=== PATIENT | female | born 1950 | race Caucasian/White ===

== ENCOUNTER 2021-03-13 17:11 | Emergency (ER) | payer MEDICARE, SELFPAY ==
[2021-03-13 17:17] VITALS: BP 151/93; PULSE 67; RESP 16; TEMP 36.8; O2SAT 99
--- NOTE | 2021-03-13 17:34 | ED.FEMALEGU ---
HPI - Female Genitourinary General Chief complaint: Urogenital-Female Stated complaint: UTI SYMPTOMS Time Seen by Provider: 03/13/21 17:34 Source: patient Mode of arrival: ambulatory Limitations: no limitations History of Present Illness HPI Narrative: Vicki garcia is a 70-year-old female with a PMH of hypertension, high cholesterol, CKD stage III ,who comes to [facility] with complaints of urinary tract symptoms that started a week ago she states she is got burning and frequency she has been trying to push water and they got little bit better but now is gotten much worse and she feels poorly Related Data Allergies Allergy/AdvReac Type Severity Reaction Status Date / Time naproxen Allergy Mild HIVES - PT Verified 03/13/21 17:24 STATES ONLY REACTS TO ALEVE, NOT OTHER NSAIDS Review of Systems Review of Systems: CONSTITUTIONAL: Denies fever, chills, sweats. Feeling poorly EYES: Denies visual changes, redness, discharge. ENT: Denies rhinorrhea, congestion, sore throat, otalgia. CARDIOVASCULAR: Denies chest pain, palpitations, edema. RESPIRATORY: Denies dyspnea, wheezing, cough GASTROINTESTINAL: Denies abdominal pain, nausea, vomiting, diarrhea. GENITOURINARY: Has dysuria,has hematuria, no abnormal discharge SKIN: Denies rash or itching. NEUROLOGIC: Denies numbness, or focal weakness. PSYCHIATRIC: Denies anxiety or depression. [facility]LY [facility], [facility] Past Medical History Medical History Chronic renal failure, stage 3 (moderate) Essential (primary) hypertension High cholesterol Surgical History Surgical History History of hip replacement Family History Family History Sibling Carcinoma of colon, Onset Age: 61 Patient's brother is Grandparent Carcinoma of colon, Onset Age: 91 Mother Family history of malignant neoplasm of breast in first degree relative Social History Social History Smoking status: Never smoker Second hand tobacco smoke exposure: No Alcohol intake: current Comments At time of signature, I agree with nursing past medical, surgical, social and family history. There is no relevant family history pertinent to the presenting complaint. Exam Narrative: GENERAL: This is a well-nourished, well-developed patient, in mild distress. HEAD: normocephalic, atraumatic. EYES: PERRL. Sclera clear/white. Vision is grossly intact. EARS: External ears normal, Hearing grossly intact. NOSE: External nose normal without nasal discharge, nares without redness, no rhinorrhea. THROAT: Mucous membranes moist, NECK: Neck supple, non-tender CARDIOVASCULAR: Regular rate and rhythm without murmurs, gallops, or rubs. RESPIRATORY: Clear to auscultation. Breath sounds equal bilaterally. No wheezes, rales, or rhonchi. GASTROINTESTINAL: Abdomen soft, SKIN: warm, intact with no suspicious lesions or rash, good texture and turgor. NEURO: awake, alert, and oriented to person, place and time. There were no obvious focal neurologic abnormalities. Steady gait EXTREMITIES: Normal range of motion. BACK: Nontender without deformity Course Course Emergency Course: Patient comes with urinary tract symptoms x1 week that got little bit better with push of drinking a lot of water but is returned and she is feeling poorly now Urine shows positive leukocytes +1, blood is +3, she is slightly dehydrated Started on Keflex 500 mg 1 twice daily x5 days and Diflucan to take after complete antibiotics Vital Signs Vital signs: Vital Signs Temperature 98.2 F 03/13/21 17:17 Pulse Rate 67 03/13/21 17:17 Respiratory Rate 16 03/13/21 17:17 Blood Pressure 151/93 H 03/13/21 17:17 Pulse Oximetry 99 03/13/21 17:17 Temperature 98.2 F 03/13/21 17:17 Pulse Rat
== END 2021-03-13 17:45 | disposition home or self-care (01) ==
PROVIDERS: Emergency Provider Nurse Practitioner; PCP Internal Medicine
DX: N30.01 Acute cystitis with hematuria (principal); I12.9 Hypertensive chronic kidney disease with stage 1 through stage 4 chronic kidney disease, or unspecified chronic kidney disease; N18.30 Chronic kidney disease, stage 3 unspecified
CPT/HCPCS: 81003; 87077; 87086; 87186; 99213; G0463

== ENCOUNTER 2021-08-07 09:40 | Outpatient (CLI) | payer MEDICARE, SELFPAY ==
--- NOTE | ~2021-08-07 | NM_ITS ---
EXAMINATION: NM stress w perf spect multi DATE: 08/07/2021 13:06 INDICATION: Dyspnea on exertion. TECHNIQUE: Rest images were obtained following intravenous administration of 9 mCi Tc99m tetrofosmin (Myoview). The patient performed an exercise activity. At peak exercise, 27.5 mCi Tc99m tetrofosmin ( Myoview) was administered intravenously, and stress images were obtained. Data was reconstructed into short axis and horizontal and vertical long axis SPECT images. Gated SPECT images were also obtained . COMPARISON: None. FINDINGS: There is no definite reversible or fixed perfusion abnormality to suggest ischemia or infar ction. There is no segmental wall motion abnormality. Left ventricular ejection fraction measures > 70%. IMPRESSION: 1. No definite ischemia or infarct. 2. Normal left ventricular ejection fraction measuring >70%. Reviewed, dictated and finalized at location B.
--- NOTE | 2021-08-07 10:29 | EST_ITS ---
Patient Info Name: Vicki Salgado Age: 71 years : 1950 Gender: Female Ht: 64 in Wt: 200 lbs BSA: 2.06 m2 HR: 57 bpm BP: 185 / 106 mmHg Heart Rhythm: Sinus Rhythm Exam Date: 08/07/2021 11:17 AM Exam Location: [facility] Stress Patient Status: Outpatient Admit Date: 08/07/2021 Staff Ordering Physician: Davidson Kay DO Attending Provider: Davidson Kay DO Exercise Technologist: Valorie Mendiola CT Exercise Physician: Petros Sr DO Exam Type: CA stress test treadmill w NM Study Info Indications R06.00 - Dyspnea, unspecified A nuclear stress test was performed. Summary 1. 1. Negative Adalid exercise stress test for ischemic ST changes by ECG criteria. 2. 2. Reduced functional capacity, achieving 7 METs of workload. 3. 3. Baseline hypertension. 4. 4. Appropriate HR response to exercise. 5. 5. Appropriate HR recovery at 1 minute post exercise. 6. 6. Nuclear scan to follow and will be reported separately. Please correlate with it. 7. 7. Patient informed of the above results. Protocol: Adalid Stress ECG Details Stage: REST Duration (min): 5 min : 12 sec Speed (mph): 0.0 Grade (%): 0 HR (bpm): 63 SBP (mmHg): 185 DBP (mmHg): 106 METS: --- Stage: REST Duration (min): 10 min : 33 sec Speed (mph): 0.0 Grade (%): 0 HR (bpm): 63 SBP (mmHg): 177 DBP (mmHg): 102 METS: --- Stage: STAGE 1 Duration (min): 1 min : 0 sec Speed (mph): 1.7 Grade (%): 10 HR (bpm): 93 SBP (mmHg): 177 DBP (mmHg): 102 METS: --- Stage: STAGE 1 Duration (min): 2 min : 0 sec Speed (mph): 1.7 Grade (%): 10 HR (bpm): 107 SBP (mmHg): 177 DBP (mmHg): 102 METS: --- Stage: STAGE 1 Duration (min): 3 min : 0 sec Speed (mph): 1.7 Grade (%): 10 HR (bpm): 115 SBP (mmHg): 181 DBP (mmHg): 99 METS: --- Stage: STAGE 2 Duration (min): 1 min : 0 sec Speed (mph): 2.5 Grade (%): 12 HR (bpm): 126 SBP (mmHg): 181 DBP (mmHg): 99 METS: --- Stage: STAGE 2 Duration (min): 2 min : 0 sec Speed (mph): 2.5 Grade (%): 12 HR (bpm): 126 SBP (mmHg): 181 DBP (mmHg): 99 METS: --- Stage: RECOVERY Duration (min): 1 min : 0 sec Speed (mph): 0.0 Grade (%): 0 HR (bpm): 119 SBP (mmHg): 137 DBP (mmHg): 88 METS: --- Stage: RECOVERY Duration (min): 2 min : 0 sec Speed (mph): 0.0 Grade (%): 0 HR (bpm): 94 SBP (mmHg): 137 DBP (mmHg): 88 METS: --- Stage: RECOVERY Duration (min): 3 min : 0 sec Speed (mph): 0.0 Grade (%): 0 HR (bpm): 81 SBP (mmHg): 137 DBP (mmHg): 88 METS: --- Stage: RECOVERY Duration (min): 3 min : 23 sec Speed (mph): 0.0 Grade (%): 0 HR (bpm): 80 SBP (mmHg): 186 DBP (mmHg): 94 METS: --- Rest HR: 63 bpm Peak HR: 145 bpm Rest Sys BP: 177 mmHg Peak Sys BP: 186 mmHg Max Pred HR: 151 bpm % Max Pred HR: 96 % Tar
== END 2021-08-07 09:41 | disposition home or self-care (01) ==
PROVIDERS: PCP Internal Medicine; Visit Provider Internal Medicine
DX: R06.00 Dyspnea, unspecified (principal); R07.89 Other chest pain
CPT/HCPCS: 78452; 93017; A9502

== ENCOUNTER 2022-10-03 03:10 | Day surgery (SDC) | payer MEDICARE, SELFPAY ==
[2022-09-24 13:06] VITALS: BMI 34.4
--- NOTE | 2022-10-03 07:53 | P.PNAN_ITS ---
Anes - Initial Pre Proc Eval Procedure: Operation Date: 10/03/22 11:00 Proposed Procedures p Screening Colonoscopy - Jarek Patrick MD Date/Time: 10/03/22 07:53 Surgeon: Jarek Patrick MD Pre Op Diagnosis: neoplasm screening Patient Data Age: 72 Gender: F Height: 1.63 m Weight: 91 kg Allergies Allergy/AdvReac Type Severity Reaction Status Date / Time naproxen Allergy Mild HIVES - PT Verified 09/24/22 13:05 STATES ONLY REACTS TO ALEVE, NOT OTHER NSAIDS Home Medications Medication Instructions Recorded Confirmed Type losartan 100 mg tablet 100 mg PO DAILY #90 tabs 07/21/22 09/24/22 Rx meloxicam 15 mg tablet 15 mg PO DAILY #90 tabs 07/21/22 09/24/22 Rx carvedilol 6.25 mg tablet 6.25 mg PO Q12H #180 tabs 08/27/22 09/24/22 Rx Patient hx anesthesia problems: none Family hx anesthesia problems: none Results Review: All pre-operative results and documents have been reviewed as part of the pre- operative evaluation. FORMERLY [facility], LATER [facility] Past Medical History Medical History Chronic renal failure, stage 3 (moderate) Essential (primary) hypertension High cholesterol Surgical History Surgical History History of hip replacement Family History Family History Sibling Carcinoma of colon, Onset Age: 61 Patient's brother is Grandparent Carcinoma of colon, Onset Age: 91 Mother Family history of malignant neoplasm of breast in first degree relative Social History Social History (Updated 08/20/22 @ 11:15 by Tiffanie Cheek MA) Smoking status: Never smoker Second hand tobacco smoke exposure: No Alcohol intake: current Drinks per week: 3 Lack of Transportation: No Lack of Food: Never True Current Housing: I Have Housing Concerned About Future Housing: No Difficulty Paying Gas/Electric Bills: No Difficulty Paying for Meds: No Currently Unemployed: No Education: Associate Degree Difficulty w/ Childcare or Family Care: No Gender identity (if verbalized by the patient): Female Spiritual care concerns: No Anes - Eval Final PreProcedure Day of Procedure 10/03/22 07:53 Patient weight: obese Heart: regular rate and rhythm Lungs: clear to auscultation and normal air movement Airway: Mallampati scale class II Neurological: alert and oriented Last oral intake: >/= 8 hours ASA classification: III Emergent: no Anesthetic plan: proceed Anesthesia type and monitoring: general GIVS Results Review: All pre-operative results and documents have been reviewed as part of the pre- operative evaluation. Informed Consent: The patient's anesthetic plan and its attendant risks and benefits were discussed with the patient/family/POA. Questions were solicited and answers provided to the satisfaction of the patient/family/POA.
[2022-10-03 10:32] VITALS: BP 175/104; PULSE 56; RESP 18; TEMP 36.3; O2SAT 100; BMI 34.3
[2022-10-03] MEDS: LACTATED RINGERS 1,000 ML 150 ML IV CONT (10:53)
[2022-10-03 10:56] VITALS: BP 152/78
--- NOTE | 2022-10-03 11:19 | PM.HPGS ---
History of Present Illness History of Present Illness Consent: Risks, benefits, and alternatives have been discussed and questions answered. Patient agrees to proceed with procedure. Chief complaint: neoplasm screening Narrative: Vicki Salgado is a 72 year old female Presents for screening colonoscopy. Patient's current weight appetite and bowel movements are normal. Patient denies abdominal pain. She has had no bleeding. Family history is significant that her brother had colon cancer. Patient's previous colonoscopy 2018 was unremarkable. Review of Systems Review of Systems: Review of systems noncontributory. [facility] Past Medical History Medical History Chronic renal failure, stage 3 (moderate) Essential (primary) hypertension High cholesterol Surgical History Surgical History History of hip replacement Family History Family History Sibling Carcinoma of colon, Onset Age: 61 Patient's brother is Grandparent Carcinoma of colon, Onset Age: 91 Mother Family history of malignant neoplasm of breast in first degree relative Social History Social History (Updated 08/20/22 @ 11:15 by Tiffanie Cheek MA) Smoking status: Never smoker Second hand tobacco smoke exposure: No Alcohol intake: current Drinks per week: 3 Lack of Transportation: No Lack of Food: Never True Current Housing: I Have Housing Concerned About Future Housing: No Difficulty Paying Gas/Electric Bills: No Difficulty Paying for Meds: No Currently Unemployed: No Education: Associate Degree Difficulty w/ Childcare or Family Care: No Gender identity (if verbalized by the patient): Female Spiritual care concerns: No Meds Home Medications and Allergies Home Medications Medication Instructions Recorded Confirmed Type losartan 100 mg tablet 100 mg PO DAILY #90 tabs 07/21/22 09/24/22 Rx meloxicam 15 mg tablet 15 mg PO DAILY #90 tabs 07/21/22 09/24/22 Rx carvedilol 6.25 mg tablet 6.25 mg PO Q12H #180 tabs 08/27/22 09/24/22 Rx Allergies Allergy/AdvReac Type Severity Reaction Status Date / Time naproxen Allergy Mild HIVES - PT Verified 09/24/22 13:05 STATES ONLY REACTS TO ALEVE, NOT OTHER NSAIDS Vital Signs Vital Signs - 24 hr 10/03/22 10:32 10/03/22 10:56 Temperature 97.4 F L Pulse Rate 56 L Respiratory Rate 18 Blood Pressure 175/104 H 152/78 H Pulse Oximetry 100 Oxygen Delivery Room Air Exam Narrative: Physical exam reveals patient to be alert. Vital signs stable. HEENT exam is unremarkable. Patient is anicteric. Lungs are clear to auscultation and percussion. Heart is without murmur or extra sounds. Abdomen bowel sounds are present soft nontender with no organomegaly. Digital external rectal exam is normal. Assessment and Plan Assessment and plan (1) Family hx of colon cancer: Code(s): Z80.0 - Family history of malignant neoplasm of digestive organs Status: Acute Assessment and Plan: Patient's brother had colon cancer. For this reason surveillance colonoscopy is advised.
[2022-10-03 11:50] VITALS: BP 127/73; PULSE 65; RESP 24; O2SAT 99
[2022-10-03 12:00] VITALS: BP 126/69; PULSE 66; RESP 23; O2SAT 100
[2022-10-03 12:10] VITALS: BP 132/92; PULSE 62; RESP 18; O2SAT 100
== END 2022-10-03 12:18 | disposition home or self-care (01) ==
PROVIDERS: PCP Internal Medicine; Visit Provider Internal Medicine Gastroenterology
PROC: 0DJD8ZZ Inspection of Lower Intestinal Tract, Via Natural or Artificial Opening Endoscopic (ICD-10-PCS; CPT 45378; principal; 2022-10-03 11:00)
DX: Z12.11 Encounter for screening for malignant neoplasm of colon (principal); K64.8 Other hemorrhoids; K57.32 Diverticulitis of large intestine without perforation or abscess without bleeding; Z80.0 Family history of malignant neoplasm of digestive organs; I12.9 Hypertensive chronic kidney disease with stage 1 through stage 4 chronic kidney disease, or unspecified chronic kidney disease; N18.30 Chronic kidney disease, stage 3 unspecified; E78.00 Pure hypercholesterolemia, unspecified; E66.9 Obesity, unspecified; Z68.34 Body mass index [BMI] 34.0-34.9, adult
CPT/HCPCS: G0105; J2704; J7120